=== PATIENT | male | born 1995 | race Caucasian/White ===

== ENCOUNTER 2020-03-12 19:19 | Outpatient (CLI) | payer OTHER | END 2020-03-12 19:20 | disposition EMS.NT | LOC: EMS 19:19 | PROVIDERS: ATTEND Surgery | DX: M25.572 Pain in left ankle and joints of left foot (principal) ==

== ENCOUNTER 2020-03-12 20:01 | Emergency (ER) | payer OTHER ==
[2020-03-12] MEDS ORDERED: HYDROmorphone 1 MG/ML CARPUJECT IVP STA (20:11)
--- NOTE | 2020-03-12 20:14 | ED Physician Documentation ---
History of Present Illness - Stated complaint Stated Complaint: LFT ANKLE PX - Chief complaint Chief Complaint: Trauma Ext - History obtained from History obtained from: Patient - Additonal information Additional information: 24-year-old male presents to the emergency department for evaluation of acute left ankle pain. He reports that he was walking up an incline and slipped when his foot was behind him. He fell down and felt immediate pop or break. He has some deformity, swelling medial side. appears very uncomfortable and in pain pmh: denies soc: + cannabis, tobacco; denies ETOH, IVDU Meds: none tetanus UTD 2016 Review of Systems Eyes: reports: Reviewed and negative Ears: reports: Reviewed and negative Nose: reports: Reviewed and negative Throat: reports: Reviewed and negative Cardiac: reports: Reviewed and negative Respiratory: reports: Reviewed and negative GI: reports: Reviewed and negative : reports: Reviewed and negative Skin: reports: Abrasion (s) (medial side left ankle) Musculoskeletal: reports: Joint pain (left ankle), Extremity swelling (left ankle) PD PAST MEDICAL HISTORY - Past Medical History GI: GERD - Past Surgical History Past Surgical History: Yes HEENT: Myringotomy (tubes) - Present Medications Home Medications: Ambulatory Orders Medication Instructions Recorded Confirmed Hydrocodone/Acetaminophen [[place] 1 each PO BID PRN #15 tablet 03/12/20 5-325 Tablet] Ibuprofen [Motrin] 600 mg PO Q6H PRN #30 tab 03/12/20 - Allergies Allergies/Adverse Reactions: Allergies Allergy/AdvReac Type Severity Reaction Status Date / Time No Known Drug Allergies Allergy Verified 03/12/20 20:08 - Social History Does the pt smoke?: No Smoking Status: Never smoker Does the pt drink ETOH?: No Does the pt have substance abuse?: No - Immunizations Immunizations are current?: Yes Immunizations: TDAP current <10years - POLST Patient has POLST: No PD ED PE EXPANDED - Extremities Extremities: Left ankle (Swelling and tenderness medial left ankle. significant ttp. Superficial abrasion over the medial malleolus. Otherwise skin intact. 2+ distal DP pulse. Range of motion not attempted secondary to pain and deformity.) Results - Vitals Vitals: Vital Signs - 24 hr 03/12/20 20:05 Temperature 36.8 C Heart Rate 78 Respiratory 18 Rate Blood Pressure 158/97 H O2 Saturation 98 Oxygen O2 Source Room air - Rads (name of study) left ankle Radiology: EMP read indepedently (Displaced distal left fibula fracture), See rad report PD MEDICAL DECISION MAKING - ED course Complexity details: reviewed results, re-evaluated patient, considered differential, d/w patient ED course: 24-year-old male presents the emergency department with acute left ankle pain. He sustained a fall when walking up an incline. He has significant tenderness over the medial malleolus. There is a very superficial abrasion. Unfortunately the x-ray does show displaced distal left fibula fracture as well as a mildly comminuted anteror talar fx. These findings were discussed with the on-call orthopedic Dr. Aleks Taylor. This time he would recommend simple splinting and continue to follow-up with appropriate orthopedic provider. This gentleman was given Dilaudid intramuscularly. The abrasion was cleansed with warm soap and water and bacitracin applied to it. He was then placed in a 3 sided short leg splint and given crutches. He will be referred to orthopedics for follow-up [place] an orthopedic group to follow-up with though he may need to do some foot work in order to find an orthopedic doctor that can accept his insurance. Post splinting CMST is preserved. Routine splint care and emergent return precautions discussed Departure - Departure Disposition: 01 Home, Self Care Clinical Impression: Fibula fracture Qualifiers: Encounter type: initial encounter Fibula location: distal physis (incl. Salter- Simmons) Fracture alignment: displaced Laterality: left Qualified Code(s): S89.302A - Unspecified physeal fracture of lower end of left fibula, initial encounter for closed fracture Talar fracture Qualifiers: Encounter type: initial encounter Fracture type: closed Talus location: unspecified portion of talus Fracture alignment: nondisplaced Laterality: left Qualified Code(s): S92.102A - Unspecified fracture of left talus, initial encounter for closed fracture Condition: Stable Record reviewed to determine appropriate education?: Yes Instructions: ED Fx Ankle Lateral Malleolus Follow-Up: Orthopedic Physician Associate [Provider Group] - Within 1 week Prescriptions: Ibuprofen [Motrin] 600 mg PO Q6H PRN #30 tab PRN Reason: Pain Hydrocodone/Acetaminophen [[place] 5-325 Tablet] 1 each PO BID PRN #15 tablet PRN Reason: Pain Comments: Unfortunately you have broken your fibula. We have placed you in a temporary splint. You do need to be seen by an orthopedic doctor within the next week. I have given you the name of an orthopedic Association in [place], however you will have to call to see if they can accept your insurance. Please schedule follow-up with your primary care provider as soon as possible Your splint must be kept dry. If it gets wet return immediately to the emergency department or any urgent care to have it replaced. Return for splint evaluation if you develop a cold extremity, have fevers, or bad smell coming from the splint. Please use the crutches to assist with ambulation. I have prescribed some ibuprofen for pain control. I have also prescribed some Vicodin for severe pain only. Please be cautious when using it. It will make you dizzy and unsafe to drive a vehicle.
[2020-03-12] MEDS ORDERED: HYDROmorphone 1 MG/ML CARPUJECT IM STA (20:29)
[2020-03-12] MEDS ORDERED: BACITRACIN ZINC OINT 1 PACKET TOP STA (20:31)
--- NOTE | 2020-03-12 20:54 | XRAY Report ---
PROCEDURE: Ankle 3 View LT INDICATIONS: Twisted L ankle then fall, swollen w/ deformity TECHNIQUE: 3 views of the ankle were acquired. COMPARISON: 10/17/2012. FINDINGS: Bones: There is a mildly displaced oblique fracture of the distal left fibula/lateral malleolus. The re is disruption of the ankle mortise with widening of the medial ankle gutter. There is also mild wi dening of the distal tibial-fibular articulation. There is also a nondisplaced, mildly comminuted fra cture of the anterior talus. There appears to be an os navicularis. No suspicious bony lesions. Soft tissues: Moderate soft tissue swelling of the left ankle. No tibiotalar joint effusion. Achill es tendon appears normal. IMPRESSION: 1. Oblique distal left fibular/lateral malleolus fracture with disruption of the ankle mortise as ankush denced by widening of the medial ankle gutter and mild diastases at the distal tibial-fibular articul ation. 2. Mildly comminuted anterior talar fracture. Reviewed by: Jose Mcwilliams MD on 03/12/2020 8:53 PM PST Approved by: Jose Mcwilliams MD on 03/12/2020 8:53 PM PST Station ID: [id number]
[2020-03-12] MEDS ORDERED: HYDROcod/ACET 5/325 Prepack 4 PO STA (20:59)
[2020-03-12 21:14] VITALS: BP 120/109
== END 2020-03-12 21:27 | disposition home or self-care (01) ==
LOC: ED 20:01
DX: S89.312A Salter-Harris Type I physeal fracture of lower end of left fibula, initial encounter for closed fracture (principal); S92.192A Other fracture of left talus, initial encounter for closed fracture; W01.0XXA Fall on same level from slipping, tripping and stumbling without subsequent striking against object, initial encounter; Y93.01 Activity, walking, marching and hiking; F17.200 Nicotine dependence, unspecified, uncomplicated
CPT/HCPCS: 73610; 96372; 99281; 99283; A9270; J1170